=== PATIENT | male | born 1955 | race Caucasian/White ===

== ENCOUNTER 2018-10-27 09:19 | Inpatient (IN) ==
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
[2018-10-27] MEDS ORDERED: 0.9 % SODIUM CHLORIDE 1,000 ML IV ONE (09:41)
[2018-10-27] MEDS ORDERED: LORazepam 2 MG/ML VIAL IV ONE ×7 (09:47→13:33)
[2018-10-27] MEDS ORDERED: MULTIVITAMINS,THERAPEUTIC 1 ML ORAL.SOL PO ONE (09:50)
[2018-10-27] MEDS ORDERED: IPRATROPIUM/ALBUTEROL 3 ML AMPUL.NEB NEB ONE (10:22)
[2018-10-27] MEDS ORDERED: POTASSIUM CHLORIDE 20 MEQ, MAGNESIUM SULFATE 16.24 MEQ, THIAMINE 100 MG, MVI, ADULT NO.... IV SCH (10:30)
[2018-10-27 10:39] LABS: Basophils # (Auto) 0 K/mcL (0.0-0.3); Basophils % (Auto) 0.4 % (0.0-2.0); Eosinophils # (Auto) 0 K/mcL (0.0-0.7); Eosinophils % (Auto) 0.1 % (0.0-7.0); Granulocytes % (Auto) 70.9 % (38.0-78.0); Lymphocytes # (Auto) 1.3 K/mcL (1.5-4.8); Lymphocytes % (Auto) 18.4 % (15.5-49.0); Mean Cell Volume 96.9 fL (80.0-100.0); Mean Corpuscular HGB Conc 32.8 g/dL (31.0-36.0); Monocytes # (Auto) 0.7 K/mcL (0.1-0.9); Monocytes % (Auto) 10.2 % (1.0-12.0); Platelet Count 326 K/mcL (140-440); RBC 4.55 M/mcL (4.50-5.90); Red Cell Distribution Width 17.7 % (11.5-14.5)
[2018-10-27] MEDS: POTASSIUM CHLORIDE 20 MEQ, MAGNESIUM SULFATE 16.24 MEQ, THIAMINE 100 MG, MVI, ADULT NO.... IV SCH ×2 (10:52→13:04)
[2018-10-27 10:58] LABS: ALT/SGPT 14 U/l (0-40); Albumin 4.2 gm/dL (3.2-5.2); Albumin/Globulin Ratio 1.1 (1.0-2.3); Alkaline Phosphatase 117 U/L (39-117); Blood Urea Nitrogen 17 mg/dl (8-23)
[2018-10-27 13:31] LABS: Appearance,Urine CLEAR; Bacteria,Urine 0 /hpf (0); Bilirubin,Urine NEG (NEG); Color,Urine YELLOW; Glucose,Urine (UA) NEGATIVE (NEG); Leukocyte Esterase,Urine NEG /uL (NEG); Mucus,Urine FEW /hpf (0); Protein,Urine 30 mg/dL (NEG); Specific Gravity,Urine 1.025 (1.000-1.035); Urine Amorphous Crystals FEW /hpf (0); Urine Blood NEG mg/dL (<0.03); Urine Hyaline Cast 1 /lpf (0-2); Urine RBC 18 /hpf (0-1); Urine Squamous Epithelial Cell < 1 /hpf (0-4); Urine WBC 1 /hpf (0-4); Urobilinogen,Urine NEG (NEG)
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
[2018-10-27 14:37] LABS: Amphetamine Screen,Urine NONE DETECTED (NONDETECTED); Benzodiazepines Screen,Urine SUSPECT POSITIVE (NONDETECTED); Cocaine Screen,Urine NONE DETECTED (NONDETECTED); Opiate Screen,Urine NONE DETECTED (NONDETECTED); Oxycodone, Urine Screen NONE DETECTED (NONDETECTED)
[2018-10-27] MEDS ORDERED: ONDANSETRON 4 MG/2 ML VIAL IV PRN (14:42)
[2018-10-27] MEDS ORDERED: NALOXONE HCL 0.4 MG/ML VIAL IV PRN (14:42)
[2018-10-27] MEDS ORDERED: DIAZEPAM 5 MG TABLET PO SCH (14:42)
[2018-10-27] MEDS ORDERED: ALBUTEROL SULFATE 2.5 MG/3 ML NEBULIZER NEB PRN (14:42)
[2018-10-27] MEDS: 0.9 % SODIUM CHLORIDE 10 ML SYRINGE IV SCH ×2 (14:52→20:51)
[2018-10-27] MEDS: DEXTROSE 5%-1/2NS W/20MEQ KCL 1,000 ML IV SCH (14:52)
--- NOTE | 2018-10-27 15:09 | XRay Report ---
HISTORY: Alcohol withdrawal and hypoxia FINDINGS: There is a small band of scar or discoid atelectasis at the left costophrenic sulcus. The lungs are otherwise clear and normally expanded. The heart appears mildly enlarged but is magnified by portable AP technique. No congestive heart failure is present. The mediastinum and hilar normal. There are old healed fractures posterolaterally in the right fifth and sixth rib. IMPRESSION: Borderline cardiomegaly. No evidence of pneumonia or aspiration Interpreted and Authenticated by: Ricardo Montanez 10/27/18
[2018-10-27] MEDS: LORazepam 2 MG/ML VIAL IV PRN ×5 (15:47→23:29)
[2018-10-27] MEDS: THIAMINE 100 MG in 0.9 % SODIUM CHLORIDE 50 ML IV SCH (15:47)
--- NOTE | 2018-10-27 15:57 | Emergency Department Note ---
ED Note Addendum Note Addendum: Christa ARIZA initially saw this patient with Dr. Frazier-he saw the patient before she came on shift and then he left after his shift ended and mine began. Please see his documentation on this. I reviewed their documentation as well as discussed the case with Christa Philip after shift change and care had been transferred to her. This patient wants to stop drinking and is requiring significant intervention for acute alcohol withdrawal. This warrants admission and so patient was admitted to Dr. Dey.
[2018-10-27] MEDS: HYDROmorphone 2 MG/ML VIAL IV PRN ×2 (20:43→23:29)
[2018-10-27] MEDS: HEPARIN 5,000 UNIT/ML VIAL SQ SCH (20:50)
[2018-10-28] MEDS: DEXTROSE 5%-1/2NS W/20MEQ KCL 1,000 ML IV SCH ×2 (04:57→20:21)
[2018-10-28] MEDS: 0.9 % SODIUM CHLORIDE 10 ML SYRINGE IV SCH ×2 (05:16→14:39)
[2018-10-28] MEDS: POTASSIUM CHLORIDE 20 MEQ, MAGNESIUM SULFATE 16.24 MEQ, THIAMINE 100 MG, MVI, ADULT NO.... IV SCH (05:16)
[2018-10-28] MEDS: FOLIC ACID 1 MG TABLET PO SCH (07:34)
[2018-10-28] MEDS: PANTOPRAZOLE 40 MG TABLET PO SCH (07:34)
[2018-10-28] MEDS: HEPARIN 5,000 UNIT/ML VIAL SQ SCH ×2 (07:34→20:23)
[2018-10-28] MEDS: ACETAMINOPHEN 325 MG TABLET PO PRN ×2 (07:34→14:38)
[2018-10-28] MEDS: MULTIVIT,THER IRON,CA,FA & MIN 1 TABLET PO SCH (07:34)
[2018-10-28] MEDS: THIAMINE 100 MG in 0.9 % SODIUM CHLORIDE 50 ML IV SCH (07:34)
[2018-10-28] MEDS: LORazepam 2 MG/ML VIAL IV PRN ×7 (07:38→23:08)
[2018-10-28 07:57] LABS: Basophils # (Auto) 0 K/mcL (0.0-0.3); Basophils % (Auto) 0.8 % (0.0-2.0); Eosinophils # (Auto) 0.1 K/mcL (0.0-0.7); Eosinophils % (Auto) 1.3 % (0.0-7.0); Granulocytes % (Auto) 58.1 % (38.0-78.0); Lymphocytes # (Auto) 1.5 K/mcL (1.5-4.8); Lymphocytes % (Auto) 27.6 % (15.5-49.0); Mean Cell Volume 98.1 fL (80.0-100.0); Mean Corpuscular HGB Conc 32.8 g/dL (31.0-36.0); Monocytes # (Auto) 0.7 K/mcL (0.1-0.9); Monocytes % (Auto) 12.2 % (1.0-12.0); Platelet Count 290 K/mcL (140-440); Red Cell Distribution Width 17.8 % (11.5-14.5)
[2018-10-28] MEDS: HYDROmorphone 2 MG/ML VIAL IV PRN ×4 (07:58→16:33)
[2018-10-28 08:14] LABS: ALT/SGPT 12 U/l (0-40); Albumin 3.5 gm/dL (3.2-5.2); Alkaline Phosphatase 105 U/L (39-117); Bilirubin,Direct < 0.2 mg/dL (0.0-0.3); Blood Urea Nitrogen 12 mg/dl (8-23); Gamma Glutamyl Transpeptidase 76 U/L (8-61); Uric Acid 3.8 mg/dL (2.5-8.0)
[2018-10-28] MEDS ORDERED: VITAMIN B COMPLEX 1 CAPSULE PO ONE (09:50)
[2018-10-28] MEDS: IPRATROPIUM/ALBUTEROL 3 ML AMPUL.NEB NEB SCH ×5 (10:23→23:30)
--- NOTE | 2018-10-28 10:53 | Internal Med Progress Note ---
Medical - PN: Subj Patient information: Note initiated : 10/28/18 at 10:50 am Service Date, if different from initiated Date: [] Patient: Tres Mobley a 63 y/o M admitted on 10/27/18 for Alcohol withdrawl. Chief Complaint: [] Interval history: Mr. Mobley is a 63 year old M with history of heavy alcohol use, he notes that he is a very severe extensive alcoholic. The patient presents to the emergency room today as he decided to quit yesterday. The patient on average drinks 3-4-1/2 L of wine every day. He denies any other alcoholic drinks along with this. Last drink was 1 AM today. According to him he and his friend decided to quit today. He is tried to quit in the past and has been through severe withdrawals noting that one time he was in a facility for nearly a month. The patient also remembers having seizures in the past. On presenting to the ER he was not feeling well and was in alcohol withdrawal, he had a see was score of 33, he required 9 mg of Ativan to calm him down a bit. He complained about some backache, some nausea tremors also has history of auditory and visual hallucinations. He has some headaches but denies any double vision, does have chronic blurring of vision as he needs some glasses. He denies any chest pain or shortness of breath has some nausea denies any vomitin g, had constipation diarrhea over the last 2-3 days. Does not have any ongoing bowel issues. Given the fact that the patient wants to quit and is planning on quitting cold turkey his history of severe alcohol withdrawal in the past he is being admitted to the hospital in the ICU for further management On presenting to the ED he was afebrile, heart rate 106, blood pressure 107 x 80 respirations 17 initially he saturating 100% on room air but later required 1-2 L of oxygen to maintain his oxygen levels more than 90 Labs show a WBC count of 7.2, hemoglobin 14.5 platelets 326, sodium 135 potass ium 4.4 bicarbonate 30 creatinine 0.5 glucose 97, alcohol level is elevated at 0.044. 10/28/17 Patient seen examined, no acute overnight issues CIWA scores reviewed, 9- 26 This AM was sitting in the chair comfortable, eating breakfast, still tremulous was bit short of breath. Pertinent ROS: Denies headache, dizziness Denies chest pain, palpitations has some wheezing, and shortness of breath. Denies abdominal pain, nausea or vomiting. - Constitutional Vitals: Vital Signs Temp Pulse Resp BP Pulse Ox 98.9 F 75 28 H 175/95 99 10/28/18 04:01 10/28/18 05:52 10/28/18 07:01 10/28/18 07:01 10/28/18 07:01 Period Temp Pulse Resp BP Sys/Hayes Pulse Ox Last 24 Hr 97.9 F-99.5 F 75-100 07-20 107-192/70-95 89-100 Intake and Output 10/27/18 10/28/18 10/28/18 21:59 05:59 13:59 Intake Total 1741 1480 51 Output Total 1475 1150 601 Balance 266 330 -550 Weight 219 lb 6.4 oz Intake & Output: Intake & Output 10/27/18 10/28/18 10/28/18 21:59 05:59 13:59 Intake Total 1741 1480 51 Output Total 1475 1150 601 Balance 266 330 -550 Weight 219 lb 6.4 oz Intake: IV 51 1000 51 Dextrose 5%-1/2Ns W/20Meq KCl 1 1000 ,000 ml @ 75 mls/hr IV .[id number] [facility] Rx#:[id number] Vitamin B1 100 mg In Sodium 51 51 Chloride 0.9% 50 ml @ 50 mls/hr IV DAILY [facility] Rx#:[id number] Oral 1210 480 GI Tube Flush 480 Output: Void Amount 1475 1150 600 # of times incontinent of urine 1 Other: Meal Dinner Percent of Meal Consumed 100% Feeding Ability Independent Urine Appearance Sediment Urine Color Pale Urine Odor Strong # Voids 1 1 Exam: Constitutional; Afebrile, cooperative, alert, not in distress. Respiratory system: Air Entry equal on both sides, No crackles or wheezing, no rhonchi. CVS- Rate rhythm regular, S1,S2 heard, no gallop, no rub. Abdomen- Soft nontender abdomen, no organomegaly, no tenderness, no guarding or rigidity, [employer]- AOOx3, moving all extremities, no gross focal deficit noted. Medical - PN: Obj Da - Labs CBC & Chem 7: 10/28/18 03:40 10/28/18 03:40 Labs: Abnormal Lab Results 10/28/18 10/28/18 10/27/18 03:40 03:40 13:00 RBC 4.00 L Hgb 12.9 L Hct 39.2 L RDW 17.8 H [place] % (Auto) 12.2 H Lymph # (Auto) Chloride Creatinine 0.5 L Phosphorus 4.6 H GGT 76 H Globulin Urine Protein 30 A Urine Ketones 20 A Urine RBC 18 H Amorphous Crystals Few A U Benzodiazepines Scrn Ethyl Alcohol 10/27/18 10/27/18 10/27/18 13:00 09:49 09:48 RBC Hgb Hct RDW 17.7 H [place] % (Auto) Lymph # (Auto) 1.3 L Chloride Creatinine Phosphorus GGT Globulin Urine Protein Urine Ketones Urine RBC Amorphous Crystals U Benzodiazepines Scrn Suspect positive A Ethyl Alcohol 0.044 H 10/27/18 09:48 RBC Hgb Hct RDW [place] % (Auto) Lymph # (Auto) Chloride 91 L Creatinine 0.5 L Phosphorus GGT Globulin 3.8 H Urine Protein Urine Ketones Urine RBC Amorphous Crystals U Benzodiazepines Scrn Ethyl Alcohol Meds: Medications Acetaminophen (Tylenol) 650 mg PO Q4-6HP PRN PRN Reason: PAIN/FEVER > 101 Last Admin: 10/28/18 07:34 Dose: 650 mg Documented by: Albuterol Sulfate (Ventolin) 2.5 mg NEB Q4HRT PRN PRN Reason: Shortness Of Breath Or Wheezing Albuterol/Ipratropium (Duoneb) 3 ml NEB Q4HRT [facility] Last Admin: 10/28/18 10:23 Dose: Not Given Documented by: Diazepam (Valium) 5 mg PO Q8HP [facility] Folic Acid (Folic Acid) 1 mg PO DAILY [facility] Last Admin: 10/28/18 07:34 Dose: 1 mg Documented by: Heparin Sodium (Porcine) (Heparin) 5,000 unit SQ Q12 [facility] Last Admin: 10/28/18 07:34 Dose: 5,000 unit Documented by: Hydromorphone HCl (Dilaudid) 0.5 mg IV Q2HP PRN PRN Reason: PAIN LEVEL > 6 Last Admin: 10/28/18 07:58 Dose: 0.5 mg Documented by: Potassium Chloride/Dextrose/Sod Cl (Dextrose 5%-1/2ns W/20meq Kcl) 1,000 mls @ 75 mls/hr IV .[id number] [facility] Last Admin: 10/28/18 04:57 Dose: 75 mls/hr Documented by: Thiamine HCl 100 mg/ Sodium (Chloride) 51 mls @ 50 mls/hr IV DAILY [facility] Last Infusion: 10/28/18 08:35 Dose: Infused Documented by: Iron Carb/Multivit/Warehouse Worker/Folic Acid (Multivitamin W/Minerals) 1 tab PO DAILY [facility] Last Admin: 10/28/18 07:34 Dose: 1 tab Documented by: Lorazepam (Ativan) 0 mg IV Q4HP PRN; Protocol PRN Reason: Alcohol Withdrawal Last Admin: 10/28/18 10:22 Dose: 2 mg Documented by: Naloxone HCl (Narcan) 0.1 mg IV Q2MIN PRN PRN Reason: Opiate Reversal Ondansetron HCl (Zofran) 4 mg IV Q4-6HP PRN PRN Reason: Nausea And Vomiting Pantoprazole Sodium (Protonix) 40 mg PO QAMAC [facility] Last Admin: 10/28/18 07:34 Dose: 40 mg Documented by: Sodium Chloride (Saline Flush) 10 ml IV Q8 [facility] Last Admin: 10/28/18 05:16 Dose: Not Given Documented by: Medical - PN: A/P - Time Spent With Patient Total time spent is greater than 50% in coordination of care (as documented) at patient's floor/unit and/or counseling patient: - Narrative A/P Narrative: A/P Delirium Tremors/ Acute Alcohol withdrawal continue to monitor closely, -continue ciwa, Valium and Ativan -thiamine replacement Acute hypoxia/ -due to ativan? aspiration? Atelectasis cxr is negative Reactive airway disease -start on bronchodilators q4hrs -could explain the slight hypoxia. Chr back pain -pain management, physical therapy once DVT -hep sq Diet Regular OT/PT eval Full code Medical - PN: Qual - Stroke Symptom Onset Unknown: No - VTE Deep Vein Thrombosis/Pulmonary Embolism Present on Admission: No
[2018-10-28] MEDS: NICOTINE 21 MG PATCH TOPICAL SCH (17:20)
[2018-10-29] MEDS: LORazepam 2 MG/ML VIAL IV PRN ×10 (01:16→22:43)
[2018-10-29] MEDS: ACETAMINOPHEN 325 MG TABLET PO PRN ×2 (01:18→16:44)
[2018-10-29] MEDS: HYDROmorphone 2 MG/ML VIAL IV PRN ×2 (02:25→07:04)
[2018-10-29] MEDS: IPRATROPIUM/ALBUTEROL 3 ML AMPUL.NEB NEB SCH ×6 (02:36→22:54)
[2018-10-29] MEDS: 0.9 % SODIUM CHLORIDE 10 ML SYRINGE IV SCH ×5 (04:47→22:43)
[2018-10-29 05:37] LABS: Basophils # (Auto) 0 K/mcL (0.0-0.3); Basophils % (Auto) 0.5 % (0.0-2.0); Eosinophils # (Auto) 0.2 K/mcL (0.0-0.7); Eosinophils % (Auto) 2.6 % (0.0-7.0); Granulocytes % (Auto) 61.7 % (38.0-78.0); Lymphocytes # (Auto) 1.4 K/mcL (1.5-4.8); Lymphocytes % (Auto) 24.2 % (15.5-49.0); Mean Cell Volume 98.3 fL (80.0-100.0); Mean Corpuscular HGB Conc 32.9 g/dL (31.0-36.0); Monocytes # (Auto) 0.6 K/mcL (0.1-0.9); Platelet Count 296 K/mcL (140-440); RBC 3.98 M/mcL (4.50-5.90); Red Cell Distribution Width 17.6 % (11.5-14.5)
[2018-10-29 05:58] LABS: ALT/SGPT 15 U/l (0-40); Albumin 3.4 gm/dL (3.2-5.2); Albumin/Globulin Ratio 0.9 (1.0-2.3); Alkaline Phosphatase 105 U/L (39-117); Bilirubin,Direct < 0.2 mg/dL (0.0-0.3); Blood Urea Nitrogen 11 mg/dl (8-23); Gamma Glutamyl Transpeptidase 75 U/L (8-61); Uric Acid 3.7 mg/dL (2.5-8.0)
[2018-10-29] MEDS: PANTOPRAZOLE 40 MG TABLET PO SCH (07:37)
[2018-10-29] MEDS ORDERED: AZITHROMYCIN 250 MG TABLET PO ONE (08:25)
[2018-10-29] MEDS ORDERED: oxyCODONE HCL 5 MG TABLET PO PRN (08:25)
[2018-10-29] MEDS: DEXTROSE 5%-1/2NS W/20MEQ KCL 1,000 ML IV SCH (08:27)
[2018-10-29] MEDS: FOLIC ACID 1 MG TABLET PO SCH (08:46)
[2018-10-29] MEDS: MULTIVIT,THER IRON,CA,FA & MIN 1 TABLET PO SCH (08:47)
[2018-10-29] MEDS: HEPARIN 5,000 UNIT/ML VIAL SQ SCH ×2 (08:47→21:16)
[2018-10-29] MEDS ORDERED: chlordiazePOXIDE 25 MG CAPSULE PO SCH (09:00)
[2018-10-29] MEDS ORDERED: THIAMINE 100 MG TABLET PO SCH (09:00)
[2018-10-29] MEDS: NICOTINE 21 MG PATCH TOPICAL SCH (10:37)
--- NOTE | 2018-10-29 12:48 | Internal Med Progress Note ---
Medical - PN: Subj Patient information: Note initiated : 10/29/18 at 12:46 pm Service Date, if different from initiated Date: [] Patient: Tres Mobley a 63 y/o M admitted on 10/27/18 for Alcohol withdrawl. Chief Complaint: [] Interval history: Mr. Mobley is a 63 year old M with history of heavy alcohol use, he notes that he is a very severe extensive alcoholic. The patient presents to the emergency room today as he decided to quit yesterday. The patient on average drinks 3-4-1/2 L of wine every day. He denies any other alcoholic drinks along with this. Last drink was 1 AM today. According to him he and his friend decided to quit today. He is tried to quit in the past and has been through severe withdrawals noting that one time he was in a facility for nearly a month. The patient also remembers having seizures in the past. On presenting to the ER he was not feeling well and was in alcohol withdrawal, he had a see was score of 33, he required 9 mg of Ativan to calm him down a bit. He complained about some backache, some nausea tremors also has history of auditory and visual hallucinations. He has some headaches but denies any double vision, does have chronic blurring of vision as he needs some glasses. He denies any chest pain or shortness of breath has some nausea denies any vomitin g, had constipation diarrhea over the last 2-3 days. Does not have any ongoing bowel issues. Given the fact that the patient wants to quit and is planning on quitting cold turkey his history of severe alcohol withdrawal in the past he is being admitted to the hospital in the ICU for further management On presenting to the ED he was afebrile, heart rate 106, blood pressure 107 x 80 respirations 17 initially he saturating 100% on room air but later required 1-2 L of oxygen to maintain his oxygen levels more than 90 Labs show a WBC count of 7.2, hemoglobin 14.5 platelets 326, sodium 135 potass ium 4.4 bicarbonate 30 creatinine 0.5 glucose 97, alcohol level is elevated at 0.044. 10/28/17 Patient seen examined, no acute overnight issues CIWA scores reviewed, 9- 26 This AM was sitting in the chair comfortable, eating breakfast, still tremulous was bit short of breath. 10/29 Pt seen examined, doing well, ambulating well, tolerating po diet, still needs ativan to help with his symptoms. Start on po librium and prn ativan po pain medications. xfer to tele status. Pertinent ROS: Denies headache, dizziness Denies chest pain, palpitations Denies cough or shortness of breath Denies abdominal pain, nausea or vomiting. - Constitutional Vitals: Vital Signs Temp Pulse Resp BP Pulse Ox 99.7 F H 94 H 24 H 123/81 89 L 10/29/18 12:00 10/29/18 11:07 10/29/18 12:00 10/29/18 12:19 10/29/18 12:19 Period Temp Pulse Resp BP Sys/Hayes Pulse Ox Last 24 Hr 98.0 F-99.7 F 74-94 11-25 109-165/68-130 88-100 Intake and Output 10/28/18 10/29/18 10/29/18 21:59 05:59 13:59 Intake Total 2310 1171 2108 Output Total 600 2175 900 Balance 1710 -1004 1208 Weight 220 lb 3.2 oz Intake & Output: Intake & Output 10/28/18 10/29/18 10/29/18 21:59 05:59 13:59 Intake Total 2310 1171 2108 Output Total 600 2175 900 Balance 1710 -1004 1208 Weight 220 lb 3.2 oz Intake: IV 1000 908 Dextrose 5%-1/2Ns W/20Meq KCl 1 1000 908 ,000 ml @ 75 mls/hr IV .[id number] [facility] Rx#:[id number] Oral 1310 1171 1200 Output: Void Amount 600 2175 900 Other: Meal Breakfast Lunch Percent of Meal Consumed 100% 75% Feeding Ability Independent Independent Urine Appearance Clear Clear Clear Urine Color Bright Yellow Pale Bright Yellow Urine Odor Normal Normal Stool Size Large Stool Color Brown Stool Consistency Dry and Hard Formed # Voids 1 1 # Bowel Movements 1 Exam: Constitutional; Afebrile, cooperative, alert, not in distress. tremolous but improving. Respiratory system: Air Entry equal on both sides, No crackles or wheezing, no rhonchi. CVS- Rate rhythm regular, S1,S2 heard, no gallop, no rub. Abdomen- Soft nontender abdomen, no organomegaly, no tenderness, no guarding or rigidity, OCCUPATIONAL HEALTH SPECIALIST- AOOx3, moving all extremities, no gross focal deficit noted. Medical - PN: Obj Da - Labs CBC & Chem 7: 10/29/18 03:45 10/29/18 03:45 Labs: Abnormal Lab Results 10/29/18 10/29/18 10/28/18 03:45 03:45 03:40 RBC 3.98 L Hgb 12.9 L Hct 39.1 L RDW 17.6 H [place] % (Auto) Lymph # (Auto) 1.4 L Chloride Creatinine 0.5 L 0.5 L Phosphorus 4.6 H GGT 75 H 76 H Globulin Albumin/Globulin Ratio 0.9 L Urine Protein Urine Ketones Urine RBC Amorphous Crystals U Benzodiazepines Scrn Ethyl Alcohol 10/28/18 10/27/18 10/27/18 03:40 13:00 13:00 RBC 4.00 L Hgb 12.9 L Hct 39.2 L RDW 17.8 H [place] % (Auto) 12.2 H Lymph # (Auto) Chloride Creatinine Phosphorus GGT Globulin Albumin/Globulin Ratio Urine Protein 30 A Urine Ketones 20 A Urine RBC 18 H Amorphous Crystals Few A U Benzodiazepines Scrn Suspect positive A Ethyl Alcohol 10/27/18 10/27/18 10/27/18 09:49 09:48 09:48 RBC Hgb Hct RDW 17.7 H [place] % (Auto) Lymph # (Auto) 1.3 L Chloride 91 L Creatinine 0.5 L Phosphorus GGT Globulin 3.8 H Albumin/Globulin Ratio Urine Protein Urine Ketones Urine RBC Amorphous Crystals U Benzodiazepines Scrn Ethyl Alcohol 0.044 H Meds: Medications Acetaminophen (Tylenol) 650 mg PO Q4-6HP PRN PRN Reason: PAIN/FEVER > 101 Last Admin: 10/29/18 01:18 Dose: 650 mg Documented by: Albuterol Sulfate (Ventolin) 2.5 mg NEB Q4HRT PRN PRN Reason: Shortness Of Breath Or Wheezing Albuterol/Ipratropium (Duoneb) 3 ml NEB Q4HRT [facility] Last Admin: 10/29/18 11:06 Dose: 3 ml Documented by: Azithromycin (Zithromax) 250 mg PO DAILY [facility] Stop: 11/02/18 09:01 Chlordiazepoxide HCl (Librium) 25 mg PO TID [facility] Last Admin: 10/29/18 08:47 Dose: 25 mg Documented by: Folic Acid (Folic Acid) 1 mg PO DAILY [facility] Last Admin: 10/29/18 08:46 Dose: 1 mg Documented by: Heparin Sodium (Porcine) (Heparin) 5,000 unit SQ Q12 [facility] Last Admin: 10/29/18 08:47 Dose: 5,000 unit Documented by: Iron Carb/Multivit/[place]/Folic Acid (Multivitamin W/Minerals) 1 tab PO DAILY [facility] Last Admin: 10/29/18 08:47 Dose: 1 tab Documented by: Lorazepam (Ativan) 0 mg IV Q4HP PRN; Protocol PRN Reason: Alcohol Withdrawal Last Admin: 10/29/18 12:18 Dose: 2 mg Documented by: Naloxone HCl (Narcan) 0.1 mg IV Q2MIN PRN PRN Reason: Opiate Reversal Nicotine (Nicoderm) 21 mg TOPICAL DAILY@1000 [facility] Last Admin: 10/29/18 10:37 Dose: 21 mg Documented by: Ondansetron HCl (Zofran) 4 mg IV Q4-6HP PRN PRN Reason: Nausea And Vomiting Oxycodone HCl (Roxicodone) 5 mg PO Q4HP PRN PRN Reason: Pain Last Admin: 10/29/18 08:47 Dose: 5 mg Documented by: Pantoprazole Sodium (Protonix) 40 mg PO QAMAC [facility] Last Admin: 10/29/18 07:37 Dose: 40 mg Documented by: Sodium Chloride (Saline Flush) 10 ml IV Q8 [facility] Last Admin: 10/29/18 06:29 Dose: Not Given Documented by: Thiamine HCl (Vitamin B1) 100 mg PO DAILY [facility] Last Admin: 10/29/18 08:47 Dose: 100 mg Documented by: Medical - PN: A/P - Time Spent With Patient Total time spent is greater than 50% in coordination of care (as documented) at patient's floor/unit and/or counseling patient: - Narrative A/P Narrative: A/P Delirium Tremors/ Acute Alcohol withdrawal continue to monitor closely, -continue ciwa, librium scheduled and Ativan prn -thiamine replacement Acute hypoxia/ -due to ativan? aspiration? Atelectasis cxr is negative oxygen sats lower 90's Reactive airway disease -start on bronchodilators q4hrs -still wheezing today, start on zithromax and prednisone, continue bronchodialators Chr back pain -pain management, physical therapy once DVT -hep sq Diet Regular OT/PT eval Full code Medical - PN: Qual - Stroke Symptom Onset Unknown: No - VTE Deep Vein Thrombosis/Pulmonary Embolism Present on Admission: No
[2018-10-29] MEDS ORDERED: ALBUTEROL SULFATE 2.5 MG/3 ML NEBULIZER NEB PRN (13:25)
[2018-10-29] MEDS ORDERED: ONDANSETRON 4 MG/2 ML VIAL IV PRN (13:25)
[2018-10-29] MEDS ORDERED: NALOXONE HCL 0.4 MG/ML VIAL IV PRN (13:25)
[2018-10-29] MEDS: chlordiazePOXIDE 25 MG CAPSULE PO SCH ×2 (15:10→21:16)
[2018-10-29] MEDS: oxyCODONE HCL 5 MG TABLET PO PRN (16:02)
[2018-10-30] MEDS: LORazepam 2 MG/ML VIAL IV PRN ×5 (00:53→18:02)
[2018-10-30] MEDS: IPRATROPIUM/ALBUTEROL 3 ML AMPUL.NEB NEB SCH ×7 (03:36→23:27)
[2018-10-30] MEDS: 0.9 % SODIUM CHLORIDE 10 ML SYRINGE IV SCH ×2 (04:39→13:24)
[2018-10-30 04:59] LABS: Basophils # (Auto) 0 K/mcL (0.0-0.3); Basophils % (Auto) 0.3 % (0.0-2.0); Eosinophils # (Auto) 0.1 K/mcL (0.0-0.7); Granulocytes % (Auto) 56.4 % (38.0-78.0); Lymphocytes # (Auto) 1.9 K/mcL (1.5-4.8); Lymphocytes % (Auto) 29.7 % (15.5-49.0); Mean Cell Volume 97.4 fL (80.0-100.0); Mean Corpuscular HGB Conc 32.6 g/dL (31.0-36.0); Monocytes # (Auto) 0.8 K/mcL (0.1-0.9); Monocytes % (Auto) 11.6 % (1.0-12.0); Platelet Count 326 K/mcL (140-440); RBC 4.44 M/mcL (4.50-5.90); Red Cell Distribution Width 17.8 % (11.5-14.5)
[2018-10-30 05:41] LABS: ALT/SGPT < 5 U/l (0-40); Albumin 3.8 gm/dL (3.2-5.2); Alkaline Phosphatase 111 U/L (39-117); Bilirubin,Direct < 0.2 mg/dL (0.0-0.3); Blood Urea Nitrogen 12 mg/dl (8-23); Gamma Glutamyl Transpeptidase 80 U/L (8-61); Uric Acid 4.5 mg/dL (2.5-8.0)
[2018-10-30] MEDS ORDERED: PANTOPRAZOLE 40 MG TABLET PO SCH (07:30)
[2018-10-30] MEDS: oxyCODONE HCL 5 MG TABLET PO PRN ×3 (08:26→21:18)
[2018-10-30] MEDS: ACETAMINOPHEN 325 MG TABLET PO PRN ×3 (08:26→18:01)
[2018-10-30] MEDS ORDERED: MULTIVIT,THER IRON,CA,FA & MIN 1 TABLET PO SCH (09:00)
[2018-10-30] MEDS ORDERED: FOLIC ACID 1 MG TABLET PO SCH (09:00)
[2018-10-30] MEDS: chlordiazePOXIDE 25 MG CAPSULE PO SCH ×3 (09:00→21:16)
[2018-10-30] MEDS ORDERED: AZITHROMYCIN 250 MG TABLET PO SCH ×2 (09:00)
[2018-10-30] MEDS ORDERED: THIAMINE 100 MG TABLET PO SCH (09:00)
[2018-10-30] MEDS: HEPARIN 5,000 UNIT/ML VIAL SQ SCH ×2 (09:00→21:15)
[2018-10-30] MEDS ORDERED: NICOTINE 21 MG PATCH TOPICAL SCH (10:00)
[2018-10-30] MEDS ORDERED: ALBUTEROL SULFATE 2.5 MG/3 ML NEBULIZER NEB PRN (10:20)
[2018-10-30] MEDS ORDERED: NALOXONE HCL 0.4 MG/ML VIAL IV PRN (10:20)
[2018-10-30] MEDS ORDERED: ONDANSETRON 4 MG/2 ML VIAL IV PRN (10:20)
--- NOTE | 2018-10-30 12:01 | Internal Med Progress Note ---
Medical - PN: Subj Patient information: Note initiated : 10/30/18 at 11:59 am Service Date, if different from initiated Date: [] Patient: Tres Mobley a 63 y/o M admitted on 10/27/18 for Alcohol withdrawl. Chief Complaint: [] Interval history: Mr. Mobley is a 63 year old M with history of heavy alcohol use, he notes that he is a very severe extensive alcoholic. The patient presents to the emergency room today as he decided to quit yesterday. The patient on average drinks 3-4-1/2 L of wine every day. He denies any other alcoholic drinks along with this. Last drink was 1 AM today. According to him he and his friend decided to quit today. He is tried to quit in the past and has been through severe withdrawals noting that one time he was in a facility for nearly a month. The patient also remembers having seizures in the past. On presenting to the ER he was not feeling well and was in alcohol withdrawal, he had a see was score of 33, he required 9 mg of Ativan to calm him down a bit. He complained about some backache, some nausea tremors also has history of auditory and visual hallucinations. He has some headaches but denies any double vision, does have chronic blurring of vision as he needs some glasses. He denies any chest pain or shortness of breath has some nausea denies any vomitin g, had constipation diarrhea over the last 2-3 days. Does not have any ongoing bowel issues. Given the fact that the patient wants to quit and is planning on quitting cold turkey his history of severe alcohol withdrawal in the past he is being admitted to the hospital in the ICU for further management On presenting to the ED he was afebrile, heart rate 106, blood pressure 107 x 80 respirations 17 initially he saturating 100% on room air but later required 1-2 L of oxygen to maintain his oxygen levels more than 90 Labs show a WBC count of 7.2, hemoglobin 14.5 platelets 326, sodium 135 potass ium 4.4 bicarbonate 30 creatinine 0.5 glucose 97, alcohol level is elevated at 0.044. 10/28/17 Patient seen examined, no acute overnight issues CIWA scores reviewed, 9- 26 This AM was sitting in the chair comfortable, eating breakfast, still tremulous was bit short of breath. 10/29 Pt seen examined, doing well, ambulating well, tolerating po diet, still needs ativan to help with his symptoms. Start on po librium and prn ativan po pain medications. xfer to tele status. 10/30 Patient seen and examined, doing well, no acute overnight events. His alcohol withdrawal symptoms are improving. Transferred to medical status he is tolerating p.o. diet well. Still feels that his legs are weak. He is still wheezing on exam Pertinent ROS: Denies headache, dizziness Denies chest pain, palpitations Denies cough or shortness of breath Denies abdominal pain, nausea or vomiting. - Constitutional Vitals: Vital Signs Temp Pulse Resp BP Pulse Ox 97.1 F 83 16 163/98 94 10/30/18 07:59 10/30/18 10:05 10/30/18 10:05 10/30/18 07:59 10/30/18 07:59 Period Temp Pulse Resp BP Sys/Hayes Pulse Ox Last 24 Hr 97.1 F-99.9 F 83-96 12-24 121-188/81-98 89-96 Intake and Output 10/29/18 10/30/18 10/30/18 20:59 05:59 13:59 Intake Total 1340 Output Total 400 Balance 940 Weight Intake & Output: Intake & Output 10/29/18 10/30/18 10/30/18 20:59 05:59 13:59 Intake Total 1340 Output Total 400 Balance 940 Weight Intake: Oral 1340 Output: Urine Catheter Amount Void Amount 400 Other: Meal Breakfast Percent of Meal Consumed 100% Feeding Ability Urine Appearance Clear Urine Color Bright Yellow Urine Odor Stool Size Stool Color Stool Consistency # Voids 1 # Bowel Movements 0 Exam: Constitutional; Afebrile, cooperative, alert, not in distress. Respiratory system: Air Entry equal on both sides, no crackles noted, bilateral wheeze, much improved since yesterday CVS- Rate rhythm regular, S1,S2 heard, no gallop, no rub. Abdomen- Soft nontender abdomen, no organomegaly, no tenderness, no guarding or rigidity, FACTORY MAINTENANCE MANAGER- AOOx3, moving all extremities, no gross focal deficit noted. Medical - PN: Obj Da - Labs CBC & Chem 7: 10/30/18 04:00 10/30/18 04:00 Labs: Abnormal Lab Results 10/30/18 10/30/1819 04:00 04:00 03:45 RBC 4.44 L Hgb Hct RDW 17.8 H [place] % (Auto) Lymph # (Auto) Creatinine 0.6 L 0.5 L Phosphorus GGT 80 H 75 H Globulin 3.8 H Albumin/Globulin Ratio 0.9 L Urine Protein Urine Ketones Urine RBC Amorphous Crystals U Benzodiazepines Scrn 10/29/18 10/28/18 10/28/18 03:45 03:40 03:40 RBC 3.98 L 4.00 L Hgb 12.9 L 12.9 L Hct 39.1 L 39.2 L RDW 17.6 H 17.8 H [place] % (Auto) 12.2 H Lymph # (Auto) 1.4 L Creatinine 0.5 L Phosphorus 4.6 H GGT 76 H Globulin Albumin/Globulin Ratio Urine Protein Urine Ketones Urine RBC Amorphous Crystals U Benzodiazepines Scrn 10/27/18 10/27/18 13:00 13:00 RBC Hgb Hct RDW [place] % (Auto) Lymph # (Auto) Creatinine Phosphorus GGT Globulin Albumin/Globulin Ratio Urine Protein 30 A Urine Ketones 20 A Urine RBC 18 H Amorphous Crystals Few A U Benzodiazepines Scrn Suspect positive A Meds: Medications Acetaminophen (Tylenol) 650 mg PO Q4-6HP PRN PRN Reason: PAIN/FEVER > 101 Albuterol Sulfate (Ventolin) 2.5 mg NEB Q4HRT PRN PRN Reason: Shortness Of Breath Or Wheezing Albuterol/Ipratropium (Duoneb) 3 ml NEB Q4HRT [facility] Azithromycin (Zithromax) 250 mg PO DAILY [facility] Stop: 11/02/18 09:01 Chlordiazepoxide HCl (Librium) 25 mg PO TID [facility] Folic Acid (Folic Acid) 1 mg PO DAILY [facility] Heparin Sodium (Porcine) (Heparin) 5,000 unit SQ Q12 [facility] Iron Carb/Multivit/Signal Apprentice/Folic Acid (Multivitamin W/Minerals) 1 tab PO DAILY [facility] Lorazepam (Ativan) 0 mg IV Q4HP PRN; Protocol PRN Reason: Alcohol Withdrawal Naloxone HCl (Narcan) 0.1 mg IV Q2MIN PRN PRN Reason: Opiate Reversal Nicotine (Nicoderm) 21 mg TOPICAL DAILY@1000 [facility] Ondansetron HCl (Zofran) 4 mg IV Q4-6HP PRN PRN Reason: Nausea And Vomiting Oxycodone HCl (Roxicodone) 5 mg PO Q4HP PRN PRN Reason: Pain Pantoprazole Sodium (Protonix) 40 mg PO QAMAC [facility] Sodium Chloride (Saline Flush) 10 ml IV Q8 [facility] Thiamine HCl (Vitamin B1) 100 mg PO DAILY [facility] Medical - PN: A/P - Time Spent With Patient Total time spent is greater than 50% in coordination of care (as documented) at patient's floor/unit and/or counseling patient: - Narrative A/P Narrative: A/P Delirium Tremors/ Acute Alcohol withdrawal [improving] continue to monitor closely, patient is now at 72 hours after his last drink and has clinically improved significantly since admission -continue ciwa, librium scheduled and Ativan prn -thiamine replacement Acute hypoxia/resolved -due to ativan? aspiration? Atelectasis cxr is negative oxygen sats lower 90's Reactive airway disease -Continue on bronchodilators q4hrs -still wheezing today, but improving, start on zithromax and prednisone, continue bronchodialators Clinically improving anticipate discharge tomorrow Chr back pain -pain management, physical therapy once DVT -hep sq Diet Regular OT/PT eval continue with physical therapy Full code Transferred to medical floor Patient is clinically improving anticipate discharge tomorrow Medical - PN: Qual - Stroke Symptom Onset Unknown: No - VTE Deep Vein Thrombosis/Pulmonary Embolism Present on Admission: No
[2018-10-31] MEDS: 0.9 % SODIUM CHLORIDE 10 ML SYRINGE IV SCH ×4 (00:15→23:23)
[2018-10-31] MEDS: LORazepam 2 MG/ML VIAL IV PRN ×5 (00:15→23:35)
[2018-10-31] MEDS: IPRATROPIUM/ALBUTEROL 3 ML AMPUL.NEB NEB SCH ×6 (03:11→23:09)
[2018-10-31 05:53] LABS: Basophils # (Auto) 0 K/mcL (0.0-0.3); Basophils % (Auto) 0.6 % (0.0-2.0); Eosinophils # (Auto) 0.2 K/mcL (0.0-0.7); Eosinophils % (Auto) 2.7 % (0.0-7.0); Granulocytes % (Auto) 46.8 % (38.0-78.0); Lymphocytes # (Auto) 2.7 K/mcL (1.5-4.8); Lymphocytes % (Auto) 38.3 % (15.5-49.0); Mean Cell Volume 98.7 fL (80.0-100.0); Mean Corpuscular HGB Conc 32.4 g/dL (31.0-36.0); Monocytes # (Auto) 0.8 K/mcL (0.1-0.9); Monocytes % (Auto) 11.6 % (1.0-12.0); Platelet Count 309 K/mcL (140-440); RBC 4.15 M/mcL (4.50-5.90); Red Cell Distribution Width 17.5 % (11.5-14.5)
[2018-10-31 06:44] LABS: ALT/SGPT 14 U/l (0-40); Albumin 3.9 gm/dL (3.2-5.2); Albumin/Globulin Ratio 1.1 (1.0-2.3); Alkaline Phosphatase 110 U/L (39-117); Bilirubin,Direct < 0.2 mg/dL (0.0-0.3); Blood Urea Nitrogen 19 mg/dl (8-23); Gamma Glutamyl Transpeptidase 73 U/L (8-61); Uric Acid 4.6 mg/dL (2.5-8.0)
[2018-10-31] MEDS ORDERED: PANTOPRAZOLE 40 MG TABLET PO SCH (07:30)
[2018-10-31] MEDS: HEPARIN 5,000 UNIT/ML VIAL SQ SCH ×2 (08:05→20:36)
[2018-10-31] MEDS: oxyCODONE HCL 5 MG TABLET PO PRN ×3 (08:06→16:45)
[2018-10-31] MEDS: chlordiazePOXIDE 25 MG CAPSULE PO SCH ×3 (08:06→20:36)
[2018-10-31] MEDS ORDERED: AZITHROMYCIN 250 MG TABLET PO SCH (09:00)
[2018-10-31] MEDS ORDERED: THIAMINE 100 MG TABLET PO SCH (09:00)
[2018-10-31] MEDS ORDERED: MULTIVIT,THER IRON,CA,FA & MIN 1 TABLET PO SCH (09:00)
[2018-10-31] MEDS ORDERED: FOLIC ACID 1 MG TABLET PO SCH (09:00)
[2018-10-31] MEDS: ACETAMINOPHEN 325 MG TABLET PO PRN ×2 (09:25→20:36)
[2018-10-31] MEDS ORDERED: NICOTINE 21 MG PATCH TOPICAL SCH (10:00)
--- NOTE | 2018-10-31 14:43 | Internal Med Progress Note ---
Medical - PN: Subj Patient information: Note initiated : 10/31/18 at 2:43 pm Service Date, if different from initiated Date: [] Patient: Tres Mobley a 63 y/o M admitted on 10/27/18 for Alcohol withdrawl. Chief Complaint: [] Interval history: Mr. Mobley is a 63 year old M with history of heavy alcohol use, he notes that he is a very severe extensive alcoholic. The patient presents to the emergency room today as he decided to quit yesterday. The patient on average drinks 3-4-1/2 L of wine every day. He denies any other alcoholic drinks along with this. Last drink was 1 AM today. According to him he and his friend decided to quit today. He is tried to quit in the past and has been through severe withdrawals noting that one time he was in a facility for nearly a month. The patient also remembers having seizures in the past. On presenting to the ER he was not feeling well and was in alcohol withdrawal, he had a see was score of 33, he required 9 mg of Ativan to calm him down a bit. He complained about some backache, some nausea tremors also has history of auditory and visual hallucinations. He has some headaches but denies any double vision, does have chronic blurring of vision as he needs some glasses. He denies any chest pain or shortness of breath has some nausea denies any vomiting , had constipation diarrhea over the last 2-3 days. Does not have any ongoing bowel issues. Given the fact that the patient wants to quit and is planning on quitting cold turkey his history of severe alcohol withdrawal in the past he is being admitted to the hospital in the ICU for further management On presenting to the ED he was afebrile, heart rate 106, blood pressure 107 x 80 respirations 17 initially he saturating 100% on room air but later required 1-2 L of oxygen to maintain his oxygen levels more than 90 Labs show a WBC count of 7.2, hemoglobin 14.5 platelets 326, sodium 135 potassi um 4.4 bicarbonate 30 creatinine 0.5 glucose 97, alcohol level is elevated at 0.044. 10/28/17 Patient seen examined, no acute overnight issues CIWA scores reviewed, 9- 26 This AM was sitting in the chair comfortable, eating breakfast, still tremulous was bit short of breath. 10/29 Pt seen examined, doing well, ambulating well, tolerating po diet, still needs ativan to help with his symptoms. Start on po librium and prn ativan po pain medications. xfer to tele status. 10/30 Patient seen and examined, doing well, no acute overnight events. His alcohol withdrawal symptoms are improving. Transferred to medical status he is tolerating p.o. diet well. Still feels that his legs are weak. He is still wheezing on exam 10/31-patient doing better. No overnight events. Minimal anxiety requiring oral benzodiazepines. CIWAA score around 5. No fever chills. Anticipate discharge tomorrow with outpatient rehabilitation resources. - Constitutional Vitals: Vital Signs Temp Pulse Resp BP Pulse Ox 98.8 F 87 16 149/85 95 10/31/18 11:30 10/31/18 13:47 10/31/18 13:47 10/31/18 11:30 10/31/18 11:30 Period Temp Pulse Resp BP Sys/Hayes Pulse Ox Last 24 Hr 97.5 F-98.8 F 72-97 12-20 127-152/85-91 90-96 Intake and Output 10/31/18 10/31/18 10/31/18 05:59 13:59 21:59 Intake Total 960 Balance 960 Intake & Output: Intake & Output 10/31/18 10/31/18 10/31/18 05:59 13:59 21:59 Intake Total 960 Balance 960 Intake: Oral 960 Other: # Voids 1 General appearance: cooperative, no acute distress Exam: Alert nonlabored breathing No anxiety Ambulating Medical - PN: Obj Da - Labs CBC & Chem 7: 10/31/18 04:10 10/31/18 04:10 Labs: Abnormal Lab Results 10/31/18 10/31/18 10/30/18 04:10 04:10 04:00 RBC 4.15 L Hgb 13.3 L Hct RDW 17.5 H Lymph # (Auto) Creatinine 0.5 L 0.6 L Glucose 132 H Phosphorus 4.7 H GGT 73 H 80 H Globulin 3.8 H Albumin/Globulin Ratio 10/30/18 10/29/18 10/29/18 04:00 03:45 03:45 RBC 4.44 L 3.98 L Hgb 12.9 L Hct 39.1 L RDW 17.8 H 17.6 H Lymph # (Auto) 1.4 L Creatinine 0.5 L Glucose Phosphorus GGT 75 H Globulin Albumin/Globulin Ratio 0.9 L Meds: Medications Acetaminophen (Tylenol) 650 mg PO Q4-6HP PRN PRN Reason: PAIN/FEVER > 101 Last Admin: 10/31/18 09:25 Dose: 650 mg Documented by: Albuterol Sulfate (Ventolin) 2.5 mg NEB Q4HRT PRN PRN Reason: Shortness Of Breath Or Wheezing Albuterol/Ipratropium (Duoneb) 3 ml NEB Q4HRT [facility] Last Admin: 10/31/18 13:40 Dose: Not Given Documented by: Azithromycin (Zithromax) 250 mg PO DAILY [facility] Stop: 11/02/18 09:01 Last Admin: 10/31/18 08:06 Dose: 250 mg Documented by: Chlordiazepoxide HCl (Librium) 25 mg PO TID [facility] Last Admin: 10/31/18 08:06 Dose: 25 mg Documented by: Folic Acid (Folic Acid) 1 mg PO DAILY [facility] Last Admin: 10/31/18 08:07 Dose: 1 mg Documented by: Heparin Sodium (Porcine) (Heparin) 5,000 unit SQ Q12 [facility] Last Admin: 10/31/18 08:05 Dose: 5,000 unit Documented by: Iron Carb/Multivit/Hemphill/Folic Acid (Multivitamin W/Minerals) 1 tab PO DAILY [facility] Last Admin: 10/31/18 08:07 Dose: 1 tab Documented by: Lorazepam (Ativan) 0 mg IV Q4HP PRN; Protocol PRN Reason: Alcohol Withdrawal Last Admin: 10/31/18 12:30 Dose: 1 mg Documented by: Naloxone HCl (Narcan) 0.1 mg IV Q2MIN PRN PRN Reason: Opiate Reversal Nicotine (Nicoderm) 21 mg TOPICAL DAILY@1000 [facility] Last Admin: 10/31/18 09:25 Dose: 21 mg Documented by: Ondansetron HCl (Zofran) 4 mg IV Q4-6HP PRN PRN Reason: Nausea And Vomiting Oxycodone HCl (Roxicodone) 5 mg PO Q4HP PRN PRN Reason: Pain Last Admin: 10/31/18 12:30 Dose: 5 mg Documented by: Pantoprazole Sodium (Protonix) 40 mg PO QAMAC [facility] Last Admin: 10/31/18 06:44 Dose: 40 mg Documented by: Sodium Chloride (Saline Flush) 10 ml IV Q8 [facility] Last Admin: 10/31/18 04:46 Dose: 10 ml Documented by: Thiamine HCl (Vitamin B1) 100 mg PO DAILY [facility] Last Admin: 10/31/18 08:05 Dose: 100 mg Documented by: Medical - PN: A/P - Time Spent With Patient Total time spent is greater than 50% in coordination of care (as documented) at patient's floor/unit and/or counseling patient: 15 - 24 minutes - Narrative A/P Narrative: * Delirium Tremors/ Acute Alcohol withdrawal clinically improved. On oral benzodiazepines. Continue thiamine replacement. Anticipate discharge in 24 hours with outpatient rehabilitation resources * Acute hypoxia/resolved-due to ativan? aspiration? Atelectasis * Reactive airway disease-Continue on bronchodilators q4hrs * Chr back pain-pain management, physical therapy once * DVT prophylaxis subcutaneous heparin * Continue PT OT/nutrition support Medical - PN: Qual - Stroke Symptom Onset Unknown: No - VTE Deep Vein Thrombosis/Pulmonary Embolism Present on Admission: No
[2018-11-01] MEDS: IPRATROPIUM/ALBUTEROL 3 ML AMPUL.NEB NEB SCH (03:47)
[2018-11-01] MEDS: LORazepam 2 MG/ML VIAL IV PRN (03:58)
--- NOTE | 2018-11-01 11:18 | Discharge Summary ---
Medical - DS: Prov Patient information: Note initiated : 11/01/18 at 11:16 am Service Date, if different from initiated Date: [] Patient: Tres Mobley 63 y/o M admitted on 10/27/18 for Alcohol withdrawl. Chief Complaint: [] Date of admission: 10/27/18 14:33 Discharge date: 11/01/18 Primary care physician: PCP No Consults: 10/27/18 12:41 Consult to Physician [CONS] Stat Comment: Consulting Provider: Vish Dey Reason For Exam: Physician to Consult Medical - DS: Meds - Discharge Medications Prescriptions: chlordiazePOXIDE [Librium] 25 mg PO TIDP PRN #30 cap PRN Reason: Anxiety Active and Home Medications: Home Medications Dextroamphetamine/Amphetamine [Adderall 20 mg Tablet] 20 mg PO TID 10/27/18 [History Confirmed 10/27/18 Last Taken Unknown] Dextroamphetamine/Amphetamine [Adderall 30 mg Tablet] 0.5 tab PO TID 10/27/18 [History Confirmed 10/27/18 Last Taken Unknown] Fluticasone/Salmeterol [Advair 250-50 Diskus] 1 puff INH BID 10/27/18 [History Confirmed 10/27/18 Last Taken Unknown] Fluticasone/Salmeterol [Advair 500-50 Diskus] 1 puff INH BID 10/27/18 [History Confirmed 10/27/18 Last Taken Unknown] OXcarbazepine [Oxcarbazepine] 600 mg PO HS 10/27/18 [History Confirmed 10/27/18 Last Taken Unknown] Suvorexant [Belsomra] 10 mg PO HS 10/27/18 [History Confirmed 10/27/18 Last Taken Unknown] Varenicline Tartrate [Chantix] 1 mg PO BID 10/27/18 [History Confirmed 10/27/18 Last Taken Unknown] chlordiazePOXIDE [Librium] 10 mg PO TID 10/27/18 [History Confirmed 10/27/18 Last Taken Unknown] chlordiazePOXIDE [Librium] 25 mg PO TIDP PRN #30 cap 10/31/18 [Rx Last Taken Unknown] Medical - DS: Hosp Hospital course: Discharge diagnosis * Delirium Tremors/ Acute Alcohol withdrawal clinically improved. Managed on multivitamins/thiamine replacement and oral benzodiazepines as needed for anxiety/alcohol withdrawal-induced agitation. Discharge in today with outpatient rehabilitation resources as arranged per case management * Acute hypoxia/resolved-due to ativan? aspiration? Atelectasis-clinically resolved * Reactive airway disease managed on as needed bronchodilators * Chr back pain-pain management/physical therapy Brief hospital course Mr. Mobley is a 63 year old M with history of heavy alcohol use, he notes that he is a very severe extensive alcoholic. The patient presents to the emergency room today as he decided to quit yesterday. The patient on average drinks 3-4-1/2 L of wine every day. He denies any other alcoholic drinks along with this. Last drink was 1 AM today. According to him he and his friend decided to quit today. He is tried to quit in the past and has been through severe withdrawals noting that one time he was in a facility for nearly a month. The patient also remembers having seizures in the past. On presenting to the ER he was not feeling well and was in alcohol withdrawal, he had a see was score of 33, he required 9 mg of Ativan to calm him down a bit. He complained about some backache, some nausea tremors also has history of auditory and visual hallucinations. He has some headaches but denies any double vision, does have chronic blurring of vision as he needs some glasses. He denies any chest pain or shortness of breath has some nausea denies any vomiting, had constipation diarrhea over the last 2-3 days. Does not have any ongoing bowel issues. Given the fact that the patient wants to quit and is planning on quitting cold turkey his history of severe alcohol withdrawal in the past he is being admitted to the hospital in the ICU for further management On presenting to the ED he was afebrile, heart rate 106, blood pressure 107 x 80 respirations 17 initially he saturating 100% on room air but later required 1-2 L of oxygen to maintain his oxygen levels more than 90 Labs show a WBC count of 7.2, hemoglobin 14.5 platelets 326, sodium 135 potassium 4.4 bicarbonate 30 creatinine 0.5 glucose 97, alcohol level is elevated at 0.044. 10/28/17 Patient seen examined, no acute overnight issues CIWA scores reviewed, 9- 26 This AM was sitting in the chair comfortable, eating breakfast, still tremulous was bit short of breath. 10/29 Pt seen examined, doing well, ambulating well, tolerating po diet, still needs ativan to help with his symptoms. Start on po librium and prn ativan po pain medications. xfer to tele status. 10/30 Patient seen and examined, doing well, no acute overnight events. His alcohol withdrawal symptoms are improving. Transferred to medical status he is tolerating p.o. diet well. Still feels that his legs are weak. He is still wheezing on exam 10/31-patient doing better. No overnight events. Minimal anxiety requiring oral benzodiazepines. CIWAA score around 5. No fever chills. Anticipate discharge tomorrow with outpatient rehabilitation resources. 11/01-patient doing well. Discharge in today with outpatient alcohol rehabilitation. No overnight events. No concerns per staff Discharge diagnosis: . - Time Spent with Patient Total time spent providing and/or coordinating discharge services: Greater than 30 minutes Medical - DS: Exam - Constitutional Vitals: Vital Signs Temp Pulse Pulse Resp BP BP Pulse Ox 11/01/18 04:39 97.5 F 91 H 14 119/81 95 11/01/18 03:51 98.2 F 86 14 130/89 96 10/31/18 23:40 98.2 F 87 18 123/77 95 10/31/18 23:10 93 H 18 10/31/18 19:55 98.1 F 96 H 18 130/86 93 10/31/18 19:40 93 10/31/18 19:00 92 H 18 10/31/18 16:00 99.1 F H 91 H 18 135/87 96 10/31/18 13:47 87 16 10/31/18 11:30 98.8 F 97 H 18 149/85 95 Intake and Output 10/31/18 11/01/18 11/01/18 21:59 05:59 13:59 Intake Total 800 240 Balance 800 240 Intake: Oral 800 240 Other: Meal snack Percent of Meal Consumed 100% Feeding Ability Independent # Voids 1 Weight 212 lb 8 oz Medical - DS: Data Labs on day of discharge: Labs from last 24 hours 10/27/18 13:00 U Benzodiazepine Confm Positive Medical - DS: A/P - Patient/Caregiver Discharge Instructions Activity: increase activity as tolerated, resume usual activities as tolerated Diet: Regular Diet Additional Instructions: Refrain from alcohol use Continue oral Librium as needed for withdrawal symptoms Outpatient alcohol resources as per case management Follow-up PCP in 5-7 days Return to ER if worsening mental status change and weakness noted Prescriptions: chlordiazePOXIDE [Librium] 25 mg PO TIDP PRN #30 cap PRN Reason: Anxiety - Follow up Plan Follow up with: No,PCP [Primary Care Provider] - Disposition: Home, Self-Care Prognosis: Fair Rehab Potential: Fair I certify that the patient requires SNF services: No Overall status at discharge: patient is progressing back to baseline Medical - DS: Qual - VTE Deep Vein Thrombosis/Pulmonary Embolism Present on Admission: No
== END 2018-11-01 04:59 | disposition home or self-care (01) | DRG 897 ==
LOC: ED 09:19 → ICU 14:33 → MEDSUR 10-30 17:09
PROVIDERS: ADMIT Internal Medicine; ATTEND Internal Medicine